=== PATIENT | female | born 1985 | race Caucasian/White ===

== ENCOUNTER 2017-08-05 15:20 | Emergency (ER) | payer OTHER ==
[~2017-08-05] VITALS: Ht 152.4 cm; Wt 69.9 kg
[2017-08-05] MEDS ORDERED: TRAMADOL HCL50 MG PO (16:51)
[2017-08-05 17:11] VITALS: BP 126/80
== END 2017-08-05 17:12 | disposition home or self-care (01) ==
LOC: EME 15:20
DX: S46.911A Strain of unspecified muscle, fascia and tendon at shoulder and upper arm level, right arm, initial encounter (principal); X50.0XXA Overexertion from strenuous movement or load, initial encounter; F90.9 Attention-deficit hyperactivity disorder, unspecified type; Z86.73 Personal history of transient ischemic attack (TIA), and cerebral infarction without residual deficits; Z91.040 Latex allergy status
CPT/HCPCS: 73030; 99281; 99284; J1885